=== PATIENT | female | born 1980 | race Hispanic/Latino ===

== ENCOUNTER 2016-05-31 22:16 | Emergency (ER) ==
[2016-05-31 23:23] LABS: MANUAL DIFF NEEDED? NO
[2016-05-31 23:26] LABS: BILIRUBIN URINE NEGATIVE (NEGATIVE); BLOOD URINE TRACE (NEGATIVE); CLARITY HAZY (CLEAR); COLOR STRAW; GLUCOSE URINE NEGATIVE (NEGATIVE); LEUKOCYTES URINE 1+ (NEGATIVE); NITRITE URINE NEGATIVE (NEGATIVE); PROTEIN URINE NEGATIVE (NEGATIVE); SP GRAVITY URINE 1.005; UROBILINOGEN URINE NORMAL
[2016-05-31 23:28] LABS: BASO% 0.2 % (0.0-0.8); EOS# 0.08 X1000 (0.0-0.7); EOS% 0.6 % (0.0-10.0); HEMATOCRIT 41.3 % (37.0-47.0); HEMOGLOBIN 14.9 g/dL (12.0-16.0); IMM GRAN# 0.02 X1000 (0.0-0.04); IMM GRAN% 0.2 % (0.0-0.5); LYMPH% 17.5 % (20.5-51.1); MCH 31.6 PG (27-31); MCHC 36.1 g/dL (33-37); MCV 87.7 FL (81-99); MONO% 7.9 % (1.7-9.3); MPV 11.2 FL (7.4-10.4); NEUT% 73.6 % (42.2-75.2); PLT 198 X1000 (130-400); RBC 4.71 XMIL (4.2-5.4)
[2016-05-31 23:37] LABS: URINE RBC <10 /HPF (<10); URINE WBC TNTC /HPF (<10)
[2016-05-31 23:38] LABS: URINE CULTURE PL NEEDED? YES; URINE EPITHELIAL CELLS >10 /HPF (<10); URINE SOURCE CLEAN CATCH
[2016-05-31 23:42] LABS: HEMOGLOBIN A1C 10.5 % (4.8-6.0)
[2016-05-31] MEDS ORDERED: SODIUM CHLORIDE 0.9% INJ ONE (23:47)
[2016-05-31] MEDS ORDERED: NS 1,000 ML IV ONE (23:47)
[2016-05-31] MEDS ORDERED: PHENERGAN IV ONE (23:47)
[2016-05-31 23:50] LABS: AGAP 17; ALBUMIN 4.9 g/dL (3.5-5.0); ALKALINE PHOSPHATASE 88 U/L (32-104); BUN 8 mg/dL (8-22); CALCIUM 9.5 mg/dL (8.8-10.2); CHLORIDE 90 mmol/L (98-107); COSMO 259; GOT 37 U/L (10-30); GPT 44 U/L (10-36); POTASSIUM 3.2 mmol/L (3.5-5.1); SODIUM 129 mmol/L (136-145); TCO2 23 mmol/L (25-35); TOTAL PROTEIN 7.6 g/dL (6.3-8.3)
[2016-05-31 23:53] LABS: AMYLASE 37 U/L (20-200); DIRECT BILIRUBIN < 0.20 mg/dL (0.00-0.20); LIPASE 18 U/L (13-60)
[2016-06-01] MEDS ORDERED: KLOR-CON PO ONE
[2016-06-01] MEDS ORDERED: ROCEPHIN 1 GM/NS 50 ML IV ONE (00:02)
--- NOTE | 2016-06-01 00:05 | PROVIDER DOCUMENTATION ---
HPI-General Adult - General Source: patient - History of Present Illness -Gen Adult Nature of Presenting Problems: 36 Y.O F presents to ED with General Adult. Pt states that she's diabetic went to [facility] and had an insulin shot in her ABD. States the spot where the shot is tingling, Now c/o of headache and Nausea. Denies any vomiting. States that she take metformin once a day hasn't followed up with PCP. Location of Pain/Injury: reports: abdomen Pain Radiation: reports: no radiation Quality of Pain: reports: other (tinglign) Severity: reports: mild, moderate Onset/Duration: reports: this evening Timing: reports: still present Context/Activities at Onset: reports: none Associated Symptoms: reports: headaches, nausea. denies: chest pain, constipation, diarrhea, loss of appetite, pain with inspiration, swelling/mass in abdomen, vomiting <Fely Doe - Last Filed: 06/01/16 00:13> <Karen Torres - Last Filed: 06/01/16 01:49> - General Chief Complaint: High Blood Sugar Stated Complaint: HAD SHOT TODAY DIABETIC/PAIN ABD Time Seen by Provider: 05/31/16 23:31 Allergies/Adverse Reactions: Patient Allergies Allergy/AdvReac Type Severity Reaction Status Date / Time No Known Allergies Allergy Verified 05/31/16 22:31 Home Medications: Home Medication List Medication Instructions Recorded Confirmed Last Taken Type Pnv No.118/Iron Fumarate/FA 1 each PO DAILY #90 tab.chew 02/18/15 Unknown Rx [ 19 Chewable Tablet] Metformin HCl [Glucophage] 500 mg PO BID #90 tablet 06/01/16 Unknown Rx Potassium Chloride [Klor-Con 10 meq PO DAILY #30 capsule.er 06/01/16 Unknown Rx Sprinkle] Sulfamethoxazole/Trimethoprim 1 each PO BID #10 tablet 06/01/16 Unknown Rx [Bactrim Ds Tablet] Review of Systems - Adult - REVIEW OF SYSTEMS - ADULT Constitutional: denies: chills, fever Eyes: reports: no symptoms reported Ears, Nose, Mouth & Throat: reports: no symptoms reported Cardiovascular: reports: no symptoms reported Respiratory: reports: no symptoms reported Gastrointestinal: reports: abdominal pain, nausea. denies: diarrhea, vomiting Genitourinary: reports: no symptoms reported Musculoskeletal: reports: no symptoms reported Integumentary: reports: no symptoms reported Neurological: reports: headache/migraines Psychiatric: reports: no symptoms reported Endocrine: reports: no symptoms reported Hematologic/Lymphatic: reports: no symptoms reported Allergic/Immunologic: reports: no symptoms reported All Other Systems: Reviewed and Negative <Fely Doe - Last Filed: 06/01/16 00:13> Past History - Adult - PAST MEDICAL HISTORY-ADULT Review of Records: reports: Old Records Reviewed, Nursing Assessment Review, Medications Reviewed, Social history reviewed & non-contributory. - SOCIAL HISTORY Smoking: non-smoker Substance Use: none/never Alcohol Use Frequency: never Living Situation: family <Fely Doe - Last Filed: 06/01/16 00:13> - PAST MEDICAL HISTORY-ADULT Major Childhood Illnesses: reports: denies history Cardiovascular: reports: denies history Respiratory: reports: denies history Gastrointestinal: reports: denies history Obstetrical/Gynecological: reports: denies history Genitourinary: reports: denies history Musculoskeletal: reports: denies history Neurological: reports: denies history Psychiatric: reports: denies history Endocrine/Immune: reports: denies history <TarikKaren rodriguez - Last Filed: 06/01/16 01:49> Physical Exam-General - PHYSICAL EXAM-ADULT Initial Vital Signs Reviewed: Yes - CONSTITUTIONAL General Appearance: appears well, alert, no apparent distress - EYES Eyes: PERRL/EOMI, pink conjunctivae, fundi clear, no AV nicking - HEAD, EARS, NOSE, MOUTH & THROAT HENMT: normocephalic/atraumatic, moist mucous membranes, normal ENT inspection, TMs normal, pharynx normal - NECK Neck: non-tender, full range of motion, supple, normal inspection - RESPIRATORY Respiratory: chest non-tender, lungs clear, normal breath sounds - CARDIOVASCULAR Cardiovascular: normal peripheral pulses, regular rate, rhythm - GASTROINTESTINAL (ABDOMEN) Abdominal Exam: normal bowel sounds, non tender, soft - LYMPHATIC Lymphatic: no adenopathy - MUSCULOSKELETAL Back Exam: normal inspection, no CVA tenderness, no vertebral tenderness Extremity: normal range of motion, non-tender - SKIN Integumentary: normal color, normal turgor, warm/dry - 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 as 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, grossly normal - PSYCHIATRIC Psych/Mental Status: normal mood/affect, normal thought content, normal thought process, oriented x 3 <Fely Doe - Last Filed: 06/01/16 00:13> Progress - PLAN OF CARE/RESULTS Progress/Plan/Lab Results: Vital Signs Temp Pulse Resp BP Pulse Ox 06/01/16 01:42 98.5 F 84 18 118/79 100 05/31/16 22:32 98.1 F 89 20 133/89 100 No Known Allergies Allergy (Verified 05/31/16 22:31) Pnv No.118/Iron Fumarate/FA [ 19 Chewable Tablet] 1 each PO DAILY #90 tab.chew 02/18/15 Metformin HCl [Glucophage] 500 mg PO BID #90 tablet 06/01/16 Potassium Chloride [Klor-Con Sprinkle] 10 meq PO DAILY #30 capsule.er 06/01/16 Sulfamethoxazole/Trimethoprim [Bactrim Ds Tablet] 1 each PO BID #10 tablet 06/01 Laboratory 05/31/16 05/31/16 05/31/16 23:05 23:05 23:05 WBC RBC Hgb Hct MCV MCH MCHC RDW Std Deviation Plt Count MPV Immature Gran % (Auto) Neut % (Auto) Lymph % (Auto) [place] % (Auto) Eos % (Auto) Baso % (Auto) Immature Gran # (Auto) Neut # (Auto) Lymph # (Auto) Larue # (Auto) Eos # (Auto) Baso # (Auto) Sodium Potassium Chloride Carbon Dioxide Anion Gap BUN Creatinine Estimated GFR/1.73 m2 BUN/Creatinine Ratio Glucose Estimat Average Glucose 255 Hemoglobin A1c 10.5 H Calculated Osmolality Calcium Total Bilirubin Direct Bilirubin < 0.20 AST ALT Alkaline Phosphatase Total Protein Albumin Globulin Albumin/Globulin Ratio Amylase 37 Lipase 18 Urine Source CLEAN CATCH Urine Color STRAW Urine Clarity HAZY A Urine pH 6.0 Ur Specific [place] 1.005 Urine Protein NEGATIVE Urine Ketones NEGATIVE Urine Blood TRACE Urine Nitrite NEGATIVE Urine Bilirubin NEGATIVE Urine Urobilinogen NORMAL Urine Microscopic RBC <10 Urine WBC 1+ A Urine Microscopic WBC TNTC A Ur Epithelial Cells >10 A Urine Bacteria 4+ Urine Glucose NEGATIVE 05/31/16 05/31/16 23:05 23:05 WBC 12.59 H RBC 4.71 Hgb 14.9 Hct 41.3 MCV 87.7 MCH 31.6 H MCHC 36.1 RDW Std Deviation 11.8 Plt Count 198 MPV 11.2 H Immature Gran % (Auto) 0.2 Neut % (Auto) 73.6 Lymph % (Auto) 17.5 L Lar[place] % (Auto) 7.9 Eos % (Auto) 0.6 Baso % (Auto) 0.2 Immature Gran # (Auto) 0.02 Neut # (Auto) 9.26 H Lymph # (Auto) 2.20 Larue # (Auto) 1.00 H Eos # (Auto) 0.08 Baso # (Auto) 0.03 Sodium 129 L Potassium 3.2 L Chloride 90 L Carbon Dioxide 23 L Anion Gap 17 BUN 8 Creatinine 0.6 Estimated GFR/1.73 m2 > 60 BUN/Creatinine Ratio 13 Glucose 124 H Estimat Average Glucose Hemoglobin A1c Calculated Osmolality 259 Calcium 9.5 Total Bilirubin 0.40 Direct Bilirubin AST 37 H ALT 44 H Alkaline Phosphatase 88 Total Protein 7.6 Albumin 4.9 Globulin 3.0 Albumin/Globulin Ratio 2.0 Amylase Lipase Urine Source Urine Color Urine Clarity Urine pH Ur Specific [place] Urine Protein Urine Ketones Urine Blood Urine Nitrite Urine Bilirubin Urine Urobilinogen Urine Microscopic RBC Urine WBC Urine Microscopic WBC Ur Epithelial Cells Urine Bacteria Urine Glucose Orders Category Date Time Status ED: Urine Bedside ORDERED Care 05/31/16 23:12 Active Saline Loc NOW Care 05/31/16 23:12 Active Saline Loc NOW Care 05/31/16 23:47 Active A1C [A1C HGB W EST AVG GLUCOSE] [CHEM] Stat Lab 05/31/16 23:05 Completed AMYLASE [CHEM] Stat Lab 05/31/16 23:05 Completed CBC WITH ELECTRONIC DIFF [HEME] Stat Lab 05/31/16 23:05 Completed COMPREHENSIVE METABOLIC PANEL [CHEM] Stat Lab 05/31/16 23:05 Completed DIRECT BILIRUBIN [CHEM] Stat Lab 05/31/16 23:05 Completed LIPASE [CHEM] Stat Lab 05/31/16 23:05 Completed UA NIMS W/REFLEX CULT PL [URINALYSIS] Stat Lab 05/31/16 23:05 Completed URINE CULTURE [RM] Routine Lab 05/31/16 23:38 Ordered 0.9% Sodium Chloride Inj [Ns] 1,000 ml Med 05/31/16 23:47 Discontinued IV 999 mls/hr CefTRIAXONE 1 GM/NS [Rocephin 1 gm/Ns] 50 ml Med 06/01/16 00:02 Discontinued IV NOW Potassium Chloride E.r. [Klor-Con] Med 06/01/16 00:00 Discontinued 20 meq PO NOW ONE Promethazine [Phenergan] Med 05/31/16 23:47 Discontinued 12.5 mg IV NOW ONE Sodium Chloride 0.9% Med 05/31/16 23:47 Discontinued 10 ml INJ NOW ONE <Karen Torres - Last Filed: 06/01/16 01:49> Departure - Departure Time of Disposition Order: 00:19 Certified Medical Emergency: Emergent <NaderFely - Last Filed: 06/01/16 00:13> - Departure Time of Disposition Order: 00:02 Certified Medical Emergency: Emergent <Karen Torres - Last Filed: 06/01/16 01:49> - Departure DIAGNOSIS: Acute UTI, Hyponatremia, Hypokalemia Uncontrolled diabetes mellitus Qualifiers: Diabetes mellitus type: type 2 Diabetes mellitus complication status: without complication Diabetes mellitus longterm insulin use: with longterm use Qualified Code(s): E11.65 - Type 2 diabetes mellitus with hyperglycemia Disposition: HOME 01 Condition: Stable Additional Instructions: Follow up with your primary care physician ED Follow Up Instructions: You have been treated by a care provider in the Emergency Department. These instructions are being provided to you so you can have an understanding of how to care for yourself upon discharge. Upon discharge from the Emergency Department, you are responsible for making arrangements for follow-up care by a physician of your choice. Take all prescribed medications as directed. Return to the Emergency Department immediately for any new or worsening symptoms. You may call the Physician Referral phone number at [phone] to obtain a list of Physicians who are taking new patients. Prescriptions: Sulfamethoxazole/Trimethoprim [Bactrim Ds Tablet] 1 each PO BID #10 tablet Metformin HCl [Glucophage] 500 mg PO BID #90 tablet Potassium Chloride [Klor-Con Sprinkle] 10 meq PO DAILY #30 capsule.er Referrals: Dale Quintana MD [STAFF PHYSICIAN] - Forms: Return to School/Parent Work Instructions: Potassium Salts tablets, extended-release tablets or capsules, Urinary Tract Infection, Ewpt-uv-Rgry, Dehydration, Adult, Hwon-ub-Aydg, Metformin tablets, Sulfamethoxazole; Trimethoprim, SMX-TMP tablets, Diabetes Mellitus and Food Attestation - Scribe Verification/Attestation Scribe:: Fely Doe Acting as Scribe for:: Scottie Lazaro Scribe documention review:: This chart was documented by a scribe and accurately reflects the service the provider performed and the decisions made by the provider. - Physician/ JACKY Attestation Patient care was provided by Advanced Practice Provider:: Yes Advanced Practice Provider:: Karen Torres Advanced Practice Provider documentation review:: The Mid-level provider documentation, treatment plan and medical decision making was reviewed by the physician who agrees with all treatment and medical decision making by the MLP. <Fely Doe - Last Filed: 06/01/16 00:13> Physician Attestation
[2016-06-01 01:43] VITALS: BP 118/79
== END 2016-06-01 01:42 | disposition home or self-care (01) ==
LOC: P.ED 22:16
DX: E87.1 Hypo-osmolality and hyponatremia (principal); E87.6 Hypokalemia; E11.65 Type 2 diabetes mellitus with hyperglycemia; R20.2 Paresthesia of skin; R51 Headache; R11.0 Nausea; R10.9 Unspecified abdominal pain; N39.0 Urinary tract infection, site not specified
CPT/HCPCS: 80053; 81001; 81025; 82150; 82248; 82948; 83036; 83690; 85025; 87088; 96365; 96366; 96375; J0696; J2550; J7030